=== PATIENT | female | born 1990 | race Caucasian/White ===

== ENCOUNTER 2025-03-01 11:04 | Emergency (ER) | payer BC ==
[~2025-03-01] VITALS: Ht 154.9 cm; Wt 81.6 kg
[2025-03-01 11:10] VITALS: TEMP 97.9
[2025-03-01 13:20] VITALS: BP 110/75; O2SAT 96
== END 2025-03-01 13:20 | disposition home or self-care (01) ==
LOC: ER 11:16
DX: R07.9 Chest pain, unspecified (principal)
CPT/HCPCS: 71045-TC

== ENCOUNTER 2025-04-03 20:40 | Emergency (ER) | payer BC ==
[~2025-04-03] VITALS: Ht 162.6 cm; Wt 86.6 kg
[2025-04-03 21:35] LABS: PREGNANCY TEST URINE QUAL NEGATIVE (NEGATIVE)
[2025-04-03 21:49] LABS: PLATELET COUNT (AUTO) 305 K/uL (150-450); RED BLOOD CELL COUNT(AUTO) 4.34 MIL/uL (4.0-5.2); RED CELL DISTRIBUTION WIDTH 13.9 % (11.5-15.0); WHITE BLOOD COUNT (AUTO) 11.2 K/uL (4.3-11.0)
[2025-04-03 21:56] LABS: CALCIUM, SERUM 8.3 mg/dL (8.5-10.1); CREATININE 1.0 mg/dL (0.6-1.3); SODIUM SERUM 143.0 mmol/L (136-145); UREA NITROGEN, BLOOD 20.0 mg/dL (7-18)
[2025-04-03 22:09] LABS: ASPARTATE AMINOTRANSFERASE 16.0 U/L (15-37); NT-PRO BNP 85.0 pg/mL (0-125); TOTAL PROTEIN, SERUM 6.7 g/dL (6.4-8.2)
[2025-04-03 22:50] VITALS: BP 136/84; TEMP 98.3; O2SAT 95
== END 2025-04-03 22:52 | disposition home or self-care (01) ==
LOC: ER 20:45
DX: M25.472 Effusion, left ankle (principal); M25.471 Effusion, right ankle; R07.89 Other chest pain; R06.02 Shortness of breath
CPT/HCPCS: 36415; 71045-TC; 80048-TC; 80076-TC; 83880; 84703-TC; 85025-TC